=== PATIENT | female | born 1950 ===

== ENCOUNTER 2023-03-17 05:35 | Day surgery (SDC) | payer OTHER | END 2023-03-17 11:00 | disposition home or self-care (01) | LOC: AMB-ENDOS 05:35 → CIR.AMB 13:15 | PROVIDERS: ATTEND Colon & Rectal Surgery | DX: K63.5 Polyp of colon (principal); K62.1 Rectal polyp; K57.30 Diverticulosis of large intestine without perforation or abscess without bleeding; R10.32 Left lower quadrant pain; Z12.11 Encounter for screening for malignant neoplasm of colon; K92.1 Melena; Z20.822 Contact with and (suspected) exposure to COVID-19 ==